=== PATIENT | female | born 1980 | race African-American/Black ===

== ENCOUNTER 2019-03-05 15:35 | Emergency (ER) | payer OTHER ==
[~2019-03-05] VITALS: Ht 165.1 cm; Wt 73.3 kg
[2019-03-05] MEDS ORDERED: THIA100T7 PO (15:51)
[2019-03-05] MEDS ORDERED: NS 1,000 ML IV ONE (16:15)
[2019-03-05 16:53] LABS: BLOOD UREA NITROGEN 8 MG/DL (7-18); CALCIUM LEVEL 8.7 MG/DL (8.5-10.1); CARBON DIOXIDE LEVEL 27 MEQ/L (21-32); CHLORIDE LEVEL 109 MEQ/L (98-107); CREATININE FOR GFR 0.76 MG/DL (0.55-1.30); GLOMERULAR FILTRATION RATE > 60.0 (>58); GLUCOSE, FASTING 85 MG/DL (70-100); POTASSIUM SERUM 4.3 MEQ/L (3.5-5.1); SODIUM LEVEL 140 MEQ/L (136-145)
[2019-03-05 16:57] LABS: BASO % 0.6 % (0.0-1.0); EOS # 0.1 10^3/uL (0.0-0.50); EOS % 2.5 % (0.0-3.0); HEMATOCRIT 32.5 % (36.0-47.0); HEMOGLOBIN 11.8 g/dl (12.0-15.5); LYMPH % 41.9 % (24.0-44.0); MEAN CORPUSCULAR HEMOGLOBIN 29.4 pg (27.0-33.0); MEAN CORPUSCULAR HGB CONC 36.3 g/dl (32.0-36.5); MONO # 0.4 10^3/uL (0.0-0.8); MONO % 8.3 % (0.0-5.0); NEUTROPHILS # 2.3 10^3/uL (1.8-7.7); NEUTROPHILS % 46.5 % (36.0-66.0); PLATELET COUNT, AUTOMATED 276 10^3/uL (150-450); RED BLOOD COUNT 4.01 10^6/uL (4.00-5.40); WHITE BLOOD COUNT 4.8 10^3/uL (4.0-10.0)
[2019-03-05 17:23] VITALS: BP 127/81
[2019-03-05] MEDS ORDERED: ANUS25SU PR (17:50)
[2019-03-05] MEDS ORDERED: ANUSOL HC 25MG SUPP PR ONE (18:00)
== END 2019-03-05 17:26 | disposition home or self-care (01) ==
LOC: M ED 15:35
DX: K62.5 Hemorrhage of anus and rectum (principal); Z79.899 Other long term (current) drug therapy